=== PATIENT | female | born 1970 | race Caucasian/White ===

== ENCOUNTER 2023-08-23 12:52 | Outpatient (CLI) | payer OTHER, SELFPAY ==
--- NOTE | 2023-08-23 14:00 | NEURO_ITS ---
Impression: # Complains of numbness of both hands. # Bilateral Carpal Tunnel Syndrome, sensory more than motor. # Normal needle/EMG exam. Nerve Conduction Studies Anti Sensory Summary Table Stim Site NR Peak (ms) P-T Amp (?V) Site1 Site2 Delta-P (ms) Dist (cm) Artemio (m/s) Left Median Anti Sensory (2-3nd Digit) Wrist 3.8 37.5 Wrist 2-3nd Digit 3.8 14.0 37 Wrist 4.1 29.1 Wrist 2-3nd Digit 3.8 14.0 37 Right Median Anti Sensory (2-3nd Digit) Wrist 3.5 20.6 Wrist 2-3nd Digit 3.5 14.0 40 Wrist 3.7 18.9 Wrist 2-3nd Digit 3.5 14.0 40 Left Radial Anti Sensory (Base 1st Digit) Wrist 1.6 23.6 Wrist Base 1st Digit 1.6 0.0 Right Radial Anti Sensory (Base 1st Digit) Wrist 1.8 22.8 Wrist Base 1st Digit 1.8 0.0 Left Ulnar Anti Sensory (5th Digit) Wrist 2.1 69.8 Wrist 5th Digit 2.1 14.0 67 Right Ulnar Anti Sensory (5th Digit) Wrist 2.0 71.4 Wrist 5th Digit 2.0 14.0 70 Motor Summary Table Stim Site NR Onset (ms) O-P Amp (mV) Site1 Site2 Delta-0 (ms) Dist (cm) Artemio (m/s) Left Median Motor (Abd Poll Brev) Wrist 3.6 2.8 Elbow Wrist 5.1 28.0 55 Elbow 8.7 3.7 ELB/ADM Wrist 0.5 0.0 ELB/ADM 3.1 3.4 Erbs ELB/ADM 4.7 0.0 Erbs 7.8 2.8 Right Median Motor (Abd Poll Brev) Wrist 3.5 3.3 Elbow Wrist 4.9 28.0 57 Elbow 8.4 2.9 Left Ulnar Motor (Abd Dig Minimi) Wrist 2.0 7.5 A Elbow Wrist 4.8 28.0 58 A Elbow 6.8 5.9 Right Ulnar Motor (Abd Dig Minimi) Wrist 2.0 9.3 A Elbow Wrist 4.7 27.0 57 A Elbow 6.7 6.6 F Wave Studies NR F-Lat (ms) L-R F-Lat (ms) Left Median (Mrkrs) (Abd Poll Brev) 27.31 0.94 Right Median (Mrkrs) (Abd Poll Brev) 26.37 0.94 Left Ulnar (Mrkrs) (Abd Dig Min) 27.18 0.00 Right Ulnar (Mrkrs) (Abd Dig Min) 27.18 0.00 EMG Side Muscle Nerve Root Ins Act Fibs Amp Dur Recrt Comment Right 1stDorInt Ulnar C8-T1 Nml Nml Nml Nml Nml Right Ext Indicis Radial (Post Int) C7-8 Nml Nml Nml Nml Nml Right Ext Digitorum Radial (Post Int) C7-8 Nml Nml Nml Nml Nml Right BrachioRad Radial C5-6 Nml Nml Nml Nml Nml Right PronatorTeres Median C6-7 Nml Nml Nml Nml Nml Right Abd Poll Brev Median C8-T1 Nml Nml Nml Nml Nml Right ABD Dig Min Ulnar C8-T1 Nml Nml Nml Nml Nml Left 1stDorInt Ulnar C8-T1 Nml Nml Nml Nml Nml Left Ext Indicis Radial (Post Int) C7-8 Nml Nml Nml Nml Nml Left Ext Digitorum Radial (Post Int) C7-8 Nml Nml Nml Nml Nml Left BrachioRad Radial C5-6 Nml Nml Nml Nml Nml Left PronatorTeres Median C6-7 Nml Nml Nml Nml Nml Left Abd Poll Brev Median C8-T1 Nml Nml Nml Nml Nml Left ABD Dig Min Ulnar C8-T1 Nml Nml Nml Nml Nml MTDD
== END 2023-08-23 12:53 | disposition home or self-care (01) ==
PROVIDERS: PCP Nurse Practitioner; Visit Provider Nurse Practitioner
DX: G56.03 Carpal tunnel syndrome, bilateral upper limbs (principal); G62.9 Polyneuropathy, unspecified
CPT/HCPCS: 95886; 95911

== ENCOUNTER 2023-09-23 08:48 | Outpatient (CLI) | payer OTHER, SELFPAY ==
[2023-09-23 09:21] LABS: Basophils Percent Auto 0.5 % (0.2-1.2); Eosinophils Absolute Auto 0.3 K/mm3 (0-0.3); Eosinophils Percent Auto 4.6 % (0-4.4); Hematocrit 41.7 % (37.0-47.0); Hemoglobin 13.8 g/dL (12.0-15.0); Immature Granulocyte Absolute 0.01 K/mm3 (0.00-0.031); Immature Granulocyte Percent A 0.2 % (0-0.5); Lymphocytes Absolute Auto 2.38 K/mm3 (0.9-3.2); Lymphocytes Percent Auto 41.9 % (18.3-44.2); Mean Corpuscular HGB Conc 33.1 g/dl (32-36); Mean Corpuscular Hemoglobin 28.3 pg (26-34); Mean Corpuscular Volume 85.5 fl (80-100); Mean Platelet Volume 9.2 fl (7.4-10.4); Monocytes Absolute Auto 0.4 K/mm3 (0.1-0.6); Monocytes Percent Auto 7.4 % (2.6-8.5); Neutrophils Absolute Auto 2.6 K/mm3 (1.3-6.7); Neutrophils Percent Auto 45.4 % (45.5-73.1); Platelet Count Result 402 k/mm3 (150-375); Red Blood Count 4.88 M/mm3 (4.2-5.4); Red Cell Distribution Width 12.6 % (11.5-14.5); White Blood Count 5.7 K/mm3 (4.5-10.0)
[2023-09-23 10:16] LABS: Iron 78 ug/dL (37-170)
[2023-09-23 10:27] LABS: Percent Iron Saturation 23 % (20-50)
[2023-09-23 12:03] LABS: Alanine Aminotransferase 37 U/L (6-35); Albumin Level 4.6 g/dL (3.5-5.1); Alkaline Phosphatase 110 U/L (38-126); Anion Gap 7 mmol/L (4-12); Aspartate Amino Transferase 34 U/L (14-36); Bilirubin,Total 0.6 mg/dL (0.2-1.3); Blood Urea Nitrogen 9 mg/dL (7-17); Calcium 9.3 mg/dL (8.4-10.2); Carbon Dioxide 26 mmol/L (22-30); Chloride 104 mmol/L (98-107); Estimated Glomerular Filt Rate > 60; Glucose 102 mg/dL (65-110); Potassium 3.8 mmol/L (3.4-5.0); Sodium 137 mmol/L (137-145)
[2023-09-23 13:12] LABS: Folic Acid > 20.0 ng/mL (2.76->20)
== END 2023-09-23 08:49 | disposition home or self-care (01) ==
LOC: ANHLAB 08:50
PROVIDERS: PCP Nurse Practitioner; Visit Provider Nurse Practitioner Family
DX: D50.9 Iron deficiency anemia, unspecified (principal); D75.838 Other thrombocytosis
CPT/HCPCS: 36415; 80053; 82607; 82728; 82746; 83540; 83550; 85025

== ENCOUNTER 2023-10-06 07:00 | Outpatient (NON) | payer OTHER, SELFPAY | END 2023-10-06 07:01 | disposition home or self-care (01) | LOC: ANHLAB 10-07 14:32 | PROVIDERS: PCP Nurse Practitioner; Visit Provider Plastic Surgery | DX: M65.4 Radial styloid tenosynovitis [de Quervain] (principal) | CPT/HCPCS: 88304 ==

== ENCOUNTER 2023-10-06 07:09 | Day surgery (SDC) | payer OTHER, SELFPAY ==
[2023-09-30 09:48] VITALS: BMI 29.0
--- NOTE | 2023-10-06 07:07 | P.OP_ITS ---
Procedure Note - Detailed Date of Procedure 10/06/23 Pre-op Diagnosis Right Carpal Tunnel Syndrome and right de quervain's Post-op Diagnosis Same Procedure Performed right ectr and 1st extensor compartment release with tenosynovectomy Surgeon Kimberly Zamora MD Counting Machine Operator mackenzie solorio pa-c Anesthesia MAC Description of Procedure INFORMED CONSENT: The patient was seen and examined and marked in the pre-op area.? The patient signed the consent form. PROCEDURE IN DETAIL:The patient taken back to OR on the stretcher in supine position. Time out performed with anesthesia, surgeon and staff agreeing on patient's name site and surgery to be performed SCDs were placed on the lower extremities and inflated. A tourniquet was placed on {right} upper extremity and antibiotics given IV After anesthesia administered sedation I injected {7}cc 1%lido with epi and 0.5% marcaine plain at the operative sites The?{right upper extremity}?was prepped and draped in sterile fashion the??{right upper extremity} was? exsanguinated with Esmarch bandage and tourniquet inflated to 250mmHg I made a transverse incision in the {right} volar distal wrist crease through skin and dermis with 15 blade scalpel.? Littler scissors spread down to antebrachial fascia. A small incision was made in antebrachial fascia allowing access to Carpal tunnel. I proceeded with sequential dilation staying in line with the ring finger and hugging the hook of the hamate.? I then used the synovial elevator to free any adhesions from the underside of the transverse carpal ligament. Next I was able to insert the Microaire endoscopic carpal tunnel device with direct visualization of the transverse fibers on the monitor and proceeded with complete segmental retrograde release of the ligament in its entirety.? I irrigated with normal saline and closed with 4-0 monocryl for dermis and subcuticular closure. Next I proceeded with making a longitudinal incision over first extensor compartment through skin and dermis with a 15 blade scalpel. Littler scissors were used to spread down to the sheath. I incised the dorsal aspect of the sheath with a 15 blade initially then spread above and bleow in proximally and distally completeing the transection with littler scissors. The dorsal ulnar sensory branch was identified and protected throughout the procedure. The APL and EPB tendons were inspected and free of masses but a moderate about of synovitis was noted. I proceedd with synovectomy of the APL and EPB tendons til they were gliding smoothly and independently. no subsheaths were idenitied. I irrigated with normal saline and closed with 4-0 monocryl for dermis and subcuticular closure A dressing of Dermabond, 4x4, claudio, and a volar splint was applied for patient safety, security, and comfort and secured with an trever bandage after the tourniquet was let down noting the hand was warm and well perfused. The patient was then awaken from anesthesia and transferred to the recovery room in stable condition.? Complications - none EBL- 0cc Disposition - home in stable conditions Mackenzie Solorio PA-C was essential for positioning, retraction, closure and dressing placement G Billing Surgery - Charge Forward: Surgery Billing ([id number] [place] [address] and adding )
--- NOTE | 2023-10-06 07:07 | WPDHPUPDATE1 ---
History and Physical Update Update Date/Time: 10/06/23 07:07 Patient seen and examined in pre-operative holding area. No interval change in medical history or symptoms. Patient recalls previous discussion of benefits and alternatives to procedure. Continues to desire to proceed with right endoscopic possible open carpal tunnel release and right first extensor compartment release. Reviewed procedure, post-op expectations and risks including but not limited to bleeding, infection, injury to tendon/nerve/vessel, decreased hand function, stiffness, RSD, no change or worsening of symptoms. I discussed the possible use of assistants and their participation in the case. Patient stated understanding and signed the consent form wishing to proceed.
[2023-10-06 08:04] VITALS: BP 123/85; PULSE 97; RESP 16; TEMP 37.1; O2SAT 99; BMI 29.5
[2023-10-06] MEDS: LACTATED RINGERS 1,000 ML 30 ML IV CONT (08:22)
--- NOTE | 2023-10-06 08:34 | P.PNAN_ITS ---
Anes - Initial Pre Proc Eval Procedure: Operation Date: 10/06/23 09:00 Proposed Procedures p Right Endoscopic Carpal Tunnel Release, Possible Open Carpal Tunnel Release, Right [facility] Educator Compartment Release. - Kimberly Zamora MD Date/Time: 10/06/23 08:34 Surgeon: Kimberly Zamora MD Pre Op Diagnosis: Right Carpal Tunnel Syndrome Patient Data Age: 53 Gender: F Height: 1.57 m Weight: 73.2 kg Last Vital Signs Temp 37.1 C 10/06/23 08:04 Pulse 97 10/06/23 08:04 Resp 16 10/06/23 08:04 BP 123/85 10/06/23 08:04 Pulse Ox 99 10/06/23 08:04 O2 Del Method Room Air 10/06/23 08:04 Allergies Allergy/AdvReac Type Severity Reaction Status Date / Time tree nut Allergy Unknown Itching Verified 10/06/23 07:55 Sulfa (Sulfonamide Allergy Rash Verified 10/06/23 07:55 Antibiotics) tuna oil AdvReac Unknown Nausea and Verified 10/06/23 07:55 Vomiting Home Medications Medication Instructions Recorded Confirmed Type aspirin 81 mg tablet 81 mg PO DAILY 09/30/23 10/06/23 History escitalopram oxalate 20 mg tablet 20 mg PO DAILY 09/30/23 10/06/23 History lisdexamfetamine 40 mg capsule 40 mg PO DAILY 09/30/23 10/06/23 History omeprazole 20 mg capsule,delayed 20 mg PO DAILY 09/30/23 10/06/23 History release risedronate 150 mg tablet 150 mg PO MONTHLY 09/30/23 10/06/23 History tramadol 50 mg tablet 50 mg PO Q6H PRN pain #12 tabs 10/06/23 Rx Patient hx anesthesia problems: none Family hx anesthesia problems: none Results Review: All pre-operative results and documents have been reviewed as part of the pre- operative evaluation. [facility] Past Medical History Medical History (Updated 10/06/23 @ 08:34 by Axel Guadalupe MD) Overweight Social History Social History Smoking status: Never smoker Second hand tobacco smoke exposure: No Alcohol intake: never Substance use: never Substance use type: does not use Living arrangements: with family Spiritual care concerns: No Anes - Eval Final PreProcedure Day of Procedure 10/06/23 08:34 Patient weight: overweight Heart: regular rate and rhythm Lungs: clear to auscultation Airway: Mallampati scale class II Neurological: alert and oriented Last oral intake: >/= 8 hours ASA classification: II Emergent: no Anesthetic plan: proceed Anesthesia type and monitoring: general GIVS and standard monitoring Results Review: All pre-operative results and documents have been reviewed as part of the pre- operative evaluation. Informed Consent: The patient's anesthetic plan and its attendant risks and benefits were discussed with the patient/family/POA. Questions were solicited and answers provided to the satisfaction of the patient/family/POA.
[2023-10-06] MEDS: ceFAZolin SODIUM 2 GM/20 ML SW SYRINGE IV PUSH (09:12)
[2023-10-06] MEDS: LIDO 1%/EPINEPHRINE 1:100,000 50 ML VIAL INFILTRATE (09:17)
[2023-10-06] MEDS: BUPivacaine HCL 0.5% 10 ML AMP INFILTRATE (09:17)
[2023-10-06 09:41] VITALS: BP 112/84; PULSE 97; RESP 16; O2SAT 99
[2023-10-06 10:03] VITALS: BP 121/88; PULSE 80; RESP 16; O2SAT 100
--- NOTE | 2023-10-06 10:04 | WPDANESPN ---
Anes - Prog Note Post-Op Date/Time: 10/06/23 10:04 Cardiovascular status: normal Respiratory status: normal Airway patency: baseline Mental status: baseline Post-Op hydration status: normal Vital Signs: Last Vital Signs Temp 37.1 C 10/06/23 08:04 Pulse 97 10/06/23 09:41 Resp 16 10/06/23 09:41 BP 112/84 10/06/23 09:41 Pulse Ox 99 10/06/23 09:41 O2 Del Method Room Air 10/06/23 09:41 Pain Score (VAS): 0/10 I/O: Intake & Output 10/05/23 10/06/23 10/06/23 23:59 07:59 15:59 Intake Total 200 Balance 200 Patient Feedback: Patient satisfied with anesthetic care.
== END 2023-10-06 10:13 | disposition home or self-care (01) ==
PROVIDERS: PCP Nurse Practitioner; Visit Provider Plastic Surgery
PROC: 01N54ZZ Release Median Nerve, Percutaneous Endoscopic Approach (ICD-10-PCS; CPT 29848; principal; 2023-10-06 09:00)
DX: G56.01 Carpal tunnel syndrome, right upper limb (principal); M65.4 Radial styloid tenosynovitis [de Quervain]
CPT/HCPCS: 29848; 25118

== ENCOUNTER 2023-10-14 07:43 | Outpatient (CLI) | payer OTHER, SELFPAY ==
--- NOTE | ~2023-10-14 | MR_ITS ---
EXAMINATION: MR cervical spine wo con DATE: 10/14/2023 08:20 INDICATION: Cervical radiculopathy. Neck pain. Left arm numbness. TECHNIQUE: Magnetic resonance imaging (MRI) of the cervical spine was performed without intravenous c ontrast. COMPARISON: None FINDINGS: Bone alignment is normal. Vertebral body heights are normal. There is mildly decreased disc height at C3-C4, C5-C6, and C6-C7. The spinal cord signal intensity is normal. The following disc le vels are specifically discussed: C2-C3: The disc does not extend beyond the endplate margin. There is no uncovertebral joint osteoarth ritis. There is mild bilateral facet joint osteoarthritis. There is no neural foraminal stenosis. The re is no central canal stenosis. C3-C4: The disc is bulging. There is mild right and moderate left uncovertebral joint osteoarthritis. There is severe right and mild left facet joint osteoarthritis. There is mild bilateral neural sergei inal stenosis. There is mild central canal stenosis. C4-C5: The disc is bulging. There is mild bilateral uncovertebral joint osteoarthritis. There is mode rate right and mild left facet joint osteoarthritis. There is mild left neural foraminal stenosis. Th ere is no central canal stenosis. C5-C6: The disc is bulging. There is moderate right and severe left uncovertebral joint osteoarthriti s. There is mild bilateral facet joint osteoarthritis. There is mild bilateral neural foraminal steno sis. There is mild central canal stenosis. C6-C7: The disc is bulging. There is mild right and moderate left uncovertebral joint osteoarthritis. There is mild bilateral facet joint osteoarthritis. There is mild right and moderate left neural for aminal stenosis. There is mild central canal stenosis. C7-T1: There is a central protrusion. There is no uncovertebral joint osteoarthritis. There is modera te bilateral facet joint osteoarthritis. There is no neural foraminal stenosis. There is no central c anal stenosis. IMPRESSION: 1. Moderate left neural foraminal stenosis at C6-C7. Otherwise mild cervical spondylosis. Reviewed, dictated and finalized at location A. IMPRESSION: 1. Moderate left neural foraminal stenosis at C6-C7. Otherwise mild cervical sp ondylosis.
== END 2023-10-14 07:44 ==
LOC: MICIMG 07:43
PROVIDERS: PCP Nurse Practitioner; Visit Provider Nurse Practitioner
DX: M47.22 Other spondylosis with radiculopathy, cervical region (principal)
CPT/HCPCS: 72141

== ENCOUNTER 2023-11-03 10:00 | Day surgery (SDC) | payer OTHER, SELFPAY ==
[2023-10-25 12:19] VITALS: BMI 29.4
--- NOTE | 2023-11-03 07:21 | WPDHPUPDATE1 ---
History and Physical Update Update Date/Time: 11/03/23 07:21 Patient seen and examined in pre-operative holding area. No interval change in medical history or symptoms. Patient recalls previous discussion of benefits and alternatives to procedure. Continues to desire to proceed with left endoscopic possible open carpal tunnel release. Reviewed procedure, post-op expectations and risks including but not limited to bleeding, infection, injury to tendon/nerve/vessel, decreased hand function, stiffness, RSD, no change or worsening of symptoms. I discussed the possible use of assistants and their participation in the case. Patient stated understanding and signed the consent form wishing to proceed.
--- NOTE | 2023-11-03 07:21 | W.PM.PROC2 ---
Procedure Note - Detailed Date of Procedure 11/03/23 Pre-op Diagnosis Left Carpal Tunnel Syndrome Post-op Diagnosis Same Procedure Performed left ectr Surgeon Kimberly Zamora MD Anesthesia MAC Description of Procedure INFORMED CONSENT: The patient was seen and examined and marked in the pre-op area.? The patient signed the consent form. PROCEDURE IN DETAIL:The patient taken back to OR on the stretcher in supine position. Time out performed with anesthesia, surgeon and staff agreeing on patient's name site and surgery to be performed SCDs were placed on the lower extremities and inflated. A tourniquet was placed on {left} upper extremity and antibiotics given IV After anesthesia administered sedation I injected {4}cc 1%lido with epi and 0.5% marcaine plain at the operative site The?{left upper extremity}?was prepped and draped in sterile fashion the??{left upper extremity} was? exsanguinated with Esmarch bandage and tourniquet inflated to 250mmHg I made a transverse incision in the {left} volar distal wrist crease through skin and dermis with 15 blade scalpel.? Littler scissors spread down to antebrachial fascia. A small incision was made in antebrachial fascia allowing access to Carpal tunnel. I proceeded with sequential dilation staying in line with the ring finger and hugging the hook of the hamate.? I then used the synovial elevator to free any adhesions from the underside of the transverse carpal ligament. Next I was able to insert the Microaire endoscopic carpal tunnel device with direct visualization of the transverse fibers on the monitor and proceeded with complete segmental retrograde release of the ligament in its entirety.? I irrigated with normal saline and closed with 4-0 monocryl for dermis and subcuticular closure. A dressing of Dermabond, 4x4, claudio, and a volar splint was applied for patient safety, security, and comfort and secured with an trever bandage after the tourniquet was let down noting the hand was warm and well perfused. The patient was then awaken from anesthesia and transferred to the recovery room in stable condition.? Complications - none EBL- 0cc Disposition - home in stable conditions AM Billing Surgery - Charge Forward: Surgery Billing ([id number])
--- NOTE | 2023-11-03 11:11 | P.PNAN_ITS ---
Anes - Initial Pre Proc Eval Procedure: Operation Date: 11/03/23 12:15 Proposed Procedures p Left Endoscopic Carpal Tunnel Release, Possible Open Carpal Tunnel Release - Kimberly Zamora MD Date/Time: 11/03/23 11:11 Surgeon: Kimberly Zamora MD Pre Op Diagnosis: Left Carpal Tunnel Syndrome Patient Data Age: 53 Gender: F Height: 1.57 m Weight: 73 kg Allergies Allergy/AdvReac Type Severity Reaction Status Date / Time tree nut Allergy Unknown Itching Verified 11/03/23 11:29 Sulfa (Sulfonamide Allergy Rash Verified 11/03/23 11:29 Antibiotics) tuna oil AdvReac Unknown Nausea and Verified 11/03/23 11:29 Vomiting Home Medications Medication Instructions Recorded Confirmed Type aspirin 81 mg tablet 81 mg PO DAILY 09/30/23 11/03/23 History escitalopram oxalate 20 mg tablet 20 mg PO DAILY 09/30/23 11/03/23 History lisdexamfetamine 40 mg capsule 40 mg PO DAILY 09/30/23 11/03/23 History omeprazole 20 mg capsule,delayed 20 mg PO DAILY 09/30/23 11/03/23 History release risedronate 150 mg tablet 150 mg PO MONTHLY 09/30/23 11/03/23 History multivit with minerals-iron 18 1 tablet PO DAILY 10/25/23 11/03/23 History mg-folic ac 400 mcg-vit K 25 mcg tablet (Adults Multivitamin) tramadol 50 mg tablet 50 mg PO Q6H PRN pain #8 tabs 11/03/23 Rx Patient hx anesthesia problems: none Family hx anesthesia problems: none Results Review: All pre-operative results and documents have been reviewed as part of the pre- operative evaluation. [facility] Past Medical History Medical History Overweight Social History Social History Smoking status: Never smoker Second hand tobacco smoke exposure: Yes Alcohol intake: never Substance use: never Substance use type: does not use Living arrangements: with family Spiritual care concerns: No Anes - Eval Final PreProcedure Day of Procedure 11/03/23 11:11 Patient weight: overweight Heart: regular rate and rhythm Lungs: clear to auscultation Airway: Mallampati scale class II Neurological: alert and oriented Last oral intake: >/= 8 hours ASA classification: II Emergent: no Anesthetic plan: proceed Anesthesia type and monitoring: general GIVS Results Review: All pre-operative results and documents have been reviewed as part of the pre- operative evaluation. Informed Consent: The patient's anesthetic plan and its attendant risks and benefits were discussed with the patient/family/POA. Questions were solicited and answers provided to the satisfaction of the patient/family/POA.
[2023-11-03 11:30] VITALS: BP 126/94; PULSE 81; RESP 16; TEMP 36.3; O2SAT 100; BMI 29.7
[2023-11-03] MEDS: LACTATED RINGERS 1,000 ML 30 ML IV CONT (12:00)
[2023-11-03] MEDS: ceFAZolin SODIUM 2 GM/20 ML SW SYRINGE IV PUSH (12:47)
[2023-11-03] MEDS: LIDOCAINE HCL 1% LOCAL INJ 10 ML VIAL 3 ML INFILTRATE (12:55)
[2023-11-03 13:08] VITALS: BP 93/82; PULSE 83; RESP 16; O2SAT 100
--- NOTE | 2023-11-03 13:16 | WPDANESPN ---
Anes - Prog Note Post-Op Date/Time: 11/03/23 13:16 Cardiovascular status: normal Respiratory status: normal Airway patency: baseline Mental status: baseline Post-Op hydration status: normal Vital Signs: Last Vital Signs Temp 36.3 C L 11/03/23 11:30 Pulse 81 11/03/23 11:30 Resp 16 11/03/23 11:30 BP 126/94 H 11/03/23 11:30 Pulse Ox 100 11/03/23 11:30 O2 Del Method Room Air 11/03/23 11:30 Pain Score (VAS): 0/10 Patient Feedback: Patient satisfied with anesthetic care.
[2023-11-03 13:18] VITALS: BP 122/86; PULSE 84; RESP 15; O2SAT 100
[2023-11-03 13:35] VITALS: BP 118/84; PULSE 72; RESP 15; O2SAT 100
== END 2023-11-03 13:45 | disposition home or self-care (01) ==
PROVIDERS: PCP Nurse Practitioner; Visit Provider Plastic Surgery
PROC: 01N54ZZ Release Median Nerve, Percutaneous Endoscopic Approach (ICD-10-PCS; CPT 29848; principal; 2023-11-03 12:15)
DX: G56.02 Carpal tunnel syndrome, left upper limb (principal)
CPT/HCPCS: 29848

== ENCOUNTER 2024-03-23 09:23 | Outpatient (CLI) | payer OTHER, SELFPAY ==
[2024-03-23 09:58] LABS: Basophils Percent Auto 0.6 % (0.2-1.2); Eosinophils Absolute Auto 0.2 K/mm3 (0-0.3); Eosinophils Percent Auto 3.7 % (0-4.4); Hematocrit 40.1 % (37.0-47.0); Hemoglobin 13.7 g/dL (12.0-15.0); Immature Granulocyte Absolute 0.01 K/mm3 (0.00-0.031); Immature Granulocyte Percent A 0.2 % (0-0.5); Lymphocytes Absolute Auto 2.07 K/mm3 (0.9-3.2); Lymphocytes Percent Auto 40.2 % (18.3-44.2); Mean Corpuscular HGB Conc 34.2 g/dl (32-36); Mean Corpuscular Hemoglobin 28.9 pg (26-34); Mean Corpuscular Volume 84.6 fl (80-100); Mean Platelet Volume 9.3 fl (7.4-10.4); Monocytes Absolute Auto 0.5 K/mm3 (0.1-0.6); Monocytes Percent Auto 9.3 % (2.6-8.5); Neutrophils Absolute Auto 2.4 K/mm3 (1.3-6.7); Platelet Count Result 389 k/mm3 (150-375); Red Blood Count 4.74 M/mm3 (4.2-5.4); Red Cell Distribution Width 12.7 % (11.5-14.5); White Blood Count 5.2 K/mm3 (4.5-10.0)
[2024-03-23 10:07] LABS: Alanine Aminotransferase 38 U/L (6-35); Albumin Level 4.3 g/dL (3.5-5.1); Alkaline Phosphatase 96 U/L (38-126); Anion Gap 3 mmol/L (4-12); Aspartate Amino Transferase 33 U/L (14-36); Bilirubin,Total 0.6 mg/dL (0.2-1.3); Blood Urea Nitrogen 9 mg/dL (7-17); Carbon Dioxide 33 mmol/L (22-30); Chloride 103 mmol/L (98-107); Estimated Glomerular Filt Rate > 60; Glucose 96 mg/dL (65-110); Potassium 3.8 mmol/L (3.4-5.0); Sodium 139 mmol/L (137-145)
== END 2024-03-23 09:24 | disposition home or self-care (01) ==
PROVIDERS: PCP Nurse Practitioner
DX: D75.838 Other thrombocytosis (principal)
CPT/HCPCS: 36415; 80053; 85025